=== PATIENT | female | born 1945 | race Caucasian/White ===

== ENCOUNTER 2018-07-06 12:07 | Inpatient (IN) | payer MEDICARE ==
[~2018-07-06 12:07] MED LIST: Iopamidol 370 76% 100 ML VIAL ONE
[2018-07-06 12:28] LABS: #Basophils 0.1 thou/uL (0.0-0.2); #Eosinphils 0.2 thou/uL (0.0-0.7); #Lymphocytes 2.6 thou/uL (1.20-3.40); #Monocytes 0.6 thou/uL (0.11-0.59); %Eosinophils 2.3 % (0.0-10.0); %Lymphocytes 30.9 % (21.0-51.0); %Monocytes 6.4 % (0.0-10.0); %Neutrophils 59.4 % (42.0-75.0); Hemoglobin 14.4 g/dL (12.0-16.0); Mean Corpuscular HGB CONC 34.1 g/dL (32.0-36.0); Mean Corpuscular Volume 85.2 fL (78.0-98.0); Mean Platelet Volume 8.3 fL (7.4-10.4); Platelet Count 237 thou/uL (130-400); RBC Distribution Width 11.6 % (11.5-14.5); Red Blood Cell (RBC) Count 4.96 mill/uL (4.20-5.40); White Blood Cell (WBC) Count 8.5 thou/uL (4.8-10.8)
[2018-07-06 12:32] LABS: Prothrombin Time 13.2 SEC (12.0-14.7)
[2018-07-06 12:33] LABS: PTT 29.4 SEC (22.9-36.1)
[2018-07-06 12:39] LABS: ALT (SGPT) 11 U/L (8-55); AST (SGOT) 13 U/L (5-34); Albumin 4.3 g/dL (3.4-4.8); Alkaline Phosphatase 63 U/L (40-150); Anion Gap 14 mmol/L (10-20); BUN (Urea Nitrogen) 20 mg/dL (9.8-20.1); Bilirubin, Total 0.6 mg/dL (0.2-1.2); CK (CPK) 29 U/L (29-168); Calc. Creatinine Clearance 0 mL/min (70-130); Carbon Dioxide 29 mmol/L (23-31); Chloride 104 mmol/L (98-107); Estimated GFR-MDRD 61; Globulin 3.4 g/dL (2.4-3.5); Glucose 192 mg/dL (83-110); Potassium 4.2 mmol/L (3.5-5.1); Protein, Total 7.7 g/dL (6.0-8.3); Sodium 143 mmol/L (136-145)
[2018-07-06 12:40] LABS: CKMB 0.5 ng/mL (0-6.6); Troponin I Less than 0.010 ng/mL (< 0.028)
--- NOTE | 2018-07-06 14:18 | CT ---
CT BRAIN WITHOUT CONTRAST CT ANGIOGRAM OF THE HEAD WITH CONTRAST: History: Stroke alert. Comparison: None. FINDINGS: CT of the brain was performed without intravenous contrast. Subsequently, CT angiogram of the head wa s performed after the intravenous administration of contrast. 3D rendering is provided. On the noncontrast portion of the examination there is hemorrhage. There is extensive microvascular i schemic changes. There is a hypodensity at the left anterior thalamus. This hypodensity appears relat ively subacute. No midline shift. No mass effect. There is high grade narrowing of the right P2 segment of the posterior cerebral artery with distal re constitution. Left vertebral artery is dominant. The basilar artery is patent. Both P1 segments are normal. Anterior cerebral arteries are patent. Middle cerebral arteries are jones nt. IMPRESSION: 1. Likely subacute infarction of the left anterior thalamus. 2. Moderate bronchovascular ischemic changes. 3. High grade narrowing of the right P2 segment posterior cerebral artery 1.5 cm with adequate dista l collateralization. Code CR. Dr. East at 12:37 pm. POS: [facility]
[2018-07-06 15:15] VITALS: BMI 24.0
--- NOTE | 2018-07-06 15:47 | HP ---
DATE OF ADMISSION: 07/06/2018 CHIEF COMPLAINT: The patient was at the baseline, doing her normal activities when she suddenly developed aphasia and also overall generalized weakness. HISTORY OF PRESENTING ILLNESS: This is a 72-year-old [place] patient with a past medical history that is significant for hypertension, diabetes and repeated cardiovascular accident. She had just received TPA a few months back subsequently patient has no neurological deficits. In the morning patient got up around 9:00,, ate her breakfast, took her medications, used the restroom, but patient was not speaking and was weak. Subsequently, the patient's caregiver noted that the patient was not moving her extremities. The patient was then brought to the ER and a CTA of the head in the ER showed subacute infarction of the subthalamic area. Subsequently slowly, the weakness in the ER completely resolved. The patient was able to move her both upper and lower extremities, but remained aphasic. The decision was made not to use any TPA as patient was improving. The patient was then transferred to the [facility] for further evaluation and treatment. PAST MEDICAL HISTORY: 1. Diabetes. 2. Hypertension. 3. Gout. 4. Hyperlipidemia. 5. Dementia. 6. History of multiple cerebrovascular accidents in the past with TPA been given during the previous time. PAST SURGICAL HISTORY: No significant surgical history. PSYCHIATRIC HISTORY: No previous psychiatric history. SOCIAL HISTORY: The patient denies any alcohol, drug or smoking history. ALLERGIES: The patient has no known drug allergies. REVIEW OF SYSTEMS: Unobtainable as the patient is aphasic right now, but other than aphasia and the weakness with which she presented, rest of the review of systems is within normal limits. PHYSICAL EXAMINATION: VITAL SIGNS: BP 158/92, pulse 79, respiratory rate 16, O2 sat 98. HEENT: Normocephalic, atraumatic head. Eyelids and conjunctivae are within normal limits. Pupils are round and reactive to light. External ears and canals are within normal limits. No discharge. No signs of sinusitis. RESPIRATORY AND CHEST: The chest wall is moving symmetrically. No accessory muscles are used. Air entry into both the lung daniel are equal. No wheezes, no rhonchi. CARDIOVASCULAR: Regular rate and rhythm. No murmurs, no gallops. ABDOMEN: Soft, NT, ND. +4 bowel sounds. NEUROLOGIC: The patient is aphasic, cranial nerves are intact, no focal deficits other than aphasia, no motor weakness, no loss of sensation. MUSCULOSKELETAL: No swelling of the joints. No discoloration. No pedal edema. ASSESSMENT AND PLAN: 1. Cardiovascular accident: CTA of the head showing subacute left thalamic stroke, aphasia, no other residual weakness is noted. History of recent TPA. Continue aspirin and statin with home medication and obtain an MRI to further evaluate the infarction, stroke labs, vitamin B12, TSH and folic acid will be obtained. PT/OT/Speech 2. Hypertension: Continue the home medications. 3. Diabetes: Continue home medication, metformin. 4. If MRI does not show anything new, the patient will be discharged home soon. Dr. Nataliya Hamilton [phone] [facility] CENTERBrittnee
[2018-07-06] MEDS ORDERED: metFORMIN 500 MG TAB PO SCH (17:00)
[2018-07-06] MEDS ORDERED: Dextrose 5% in Water 1,000 ML IV PRN (17:47)
[2018-07-06] MEDS ORDERED: Dextrose 50% Abboject 50 ML SYRINGE IVP PRN (17:47)
[2018-07-06] MEDS ORDERED: Atorvastatin Calcium 40 MG TAB PO SCH (21:00)
[2018-07-07 04:29] LABS: Anion Gap 15 mmol/L (10-20); BUN (Urea Nitrogen) 18 mg/dL (9.8-20.1); Calc. Creatinine Clearance 57 mL/min (70-130); Calcium 9.6 mg/dL (7.8-10.44); Carbon Dioxide 25 mmol/L (23-31); Cardiac Risk 4.2 (Less than 4.5); Chloride 106 mmol/L (98-107); Cholesterol 146 mg/dl (< 200 Desired); Estimated GFR-MDRD 69; Glucose 98 mg/dL (83-110); HDL Cholesterol 35 mg/dL (>60 Neg Risk); LDL Cholesterol, Calculated 84 mg/dL; Potassium 3.6 mmol/L (3.5-5.1); Sodium 142 mmol/L (136-145); Triglycerides 135 mg/dL (Less than 150)
[2018-07-07 04:58] LABS: Folate (Folic Acid) 12.6 ng/mL (7.0-31.4)
[2018-07-07] MEDS: Enoxaparin Sodium 40 MG/0.4 ML SYRINGE SC SCH (10:01)
[2018-07-07] MEDS: HumaLOG 300 UNITS/3 ML VIAL SC PRN (11:14)
--- NOTE | 2018-07-07 13:52 | PDOC.PN ---
- Subjective Encounter Start Date: 07/07/18 Encounter Start Time: 09:30 Subjective: pt up in bed was dizzy this am - Objective Resuscitation Status: Resuscitation Status FULL:Full Resuscitation Vital Signs & Weight: Vital Signs (12 hours) Temp Pulse Pulse Pulse Resp BP BP 07/07/18 11:08 98.7 F 74 16 07/07/18 09:09 68 76 126/78 103/73 07/07/18 09:00 68 76 126/78 103/73 07/07/18 07:40 98.5 F 69 20 07/07/18 04:00 97.5 F L 71 16 BP Pulse Ox 07/07/18 11:08 172/89 H 92 L 07/07/18 09:09 07/07/18 09:00 07/07/18 07:40 150/80 H 92 L 07/07/18 04:00 166/75 H 96 Weight Weight 127 lb 8 oz I&O: 07/06/18 07/07/18 07/08/18 06:59 06:59 06:59 Intake Total 150 600 Balance 150 600 Result Diagrams: 07/06/18 12:15 07/07/18 03:31 Additional Labs: Accuchecks 07/07/18 07/06/18 05:20 20:19 POC Glucose 111 H 119 H Phys Exam - Physical Examination Neck: no nodes, no JVD, supple, full ROM Respiratory: no wheezing, no rales, no rhonchi, wheezing present, clear to auscultation bilateral Cardiovascular: RRR, no significant murmur, no rub, gallop, irregular Gastrointestinal: soft, non-tender, no distention, positive bowel sounds Musculoskeletal: no edema, pulses present, edema present pt is slow to respond, mild weakness to right upper and lower ext Dx/Plan (1) Acute ischemic stroke Code(s): I63.9 - CEREBRAL INFARCTION, UNSPECIFIED Status: Acute (2) HTN (hypertension) Code(s): I10 - ESSENTIAL (PRIMARY) HYPERTENSION Status: Acute (3) Diabetes Code(s): E11.9 - TYPE 2 DIABETES MELLITUS WITHOUT COMPLICATIONS Status: Acute - Plan pt has has multiple strokes is on asa/plavix -: will get records from [facility], nurse notified -: cta indicates high grade stenosis cloth sander will consult -: neurosurgery for possible any intervention, also consult neurology -: mri ordered. pt had recent echo. * . Review of Systems - Review of Systems Respiratory: negative: Cough, Dry, Shortness of Breath, Hemoptysis, SOB with Excertion, Pleuritic Pain, Sputum, Wheezing Cardiovascular: negative: chest pain, palpitations, orthopnea, paroxysmal nocturnal dyspnea, edema, light headedness, other Gastrointestinal: negative: Nausea, Vomiting, Abdominal Pain, Diarrhea, Constipation, Melena, Hematochezia, Other - Medications/Allergies Allergies/Adverse Reactions: Allergies Allergy/AdvReac Type Severity Reaction Status Date / Time No Known Allergies Allergy Verified 07/06/18 16:10 Medications: Current Medications Aspirin (Aspirin Chewable) 81 mg PO DAILY [facility] Last Admin: 07/07/18 10:01 Dose: 81 mg Clopidogrel Bisulfate (Plavix) 75 mg PO DAILY [facility] Cyanocobalamin (Vitamin B-12) 1,000 mcg IM DAILY [facility] Stop: 07/09/18 10:00 Cyanocobalamin (Vitamin B-12) 1,000 mcg PO DAILY [facility] Dextrose/Water (Dextrose 50%) 25 gm IVP PRN PRN PRN Reason: HYPOGLYCEMIA PROTOCOL Enoxaparin Sodium (Lovenox) 40 mg SC 0900 [facility] Last Admin: 07/07/18 10:01 Dose: 40 mg Glucagon (Glucagon) 1 mg IM PRN PRN PRN Reason: HYPOGLYCEMIA PROTOCOL Dextrose/Water (D5w) 1,000 mls @ 0 mls/hr IV INF PRN PRN Reason: HYPOGLYCEMIA PROTOCOL Insulin Human Lispro (Humalog) 0 units SC .MILD SLIDING SCALE PRN; Protocol PRN Reason: MILD SLIDING SCALE Last Admin: 07/07/18 11:14 Dose: 2 unit Losartan Potassium (Cozaar) 100 mg PO DAILY [facility] Metformin HCl (Glucophage) 500 mg PO BID-[facility] Simvastatin (Zocor) 20 mg PO HS [facility]
--- NOTE | 2018-07-07 14:12 | MRI ---
MRI BRAIN WITH AND WITHOUT CONTRAST IV CONTRAST: HISTORY: Stroke, dizziness. Right-sided weakness. FINDINGS: Correlation is made with the CT and CTA of previous day. Multiple foci of T2 prolongation in the periventricular white matter consistent with chronic small-ve ssel ischemic disease. No restricted diffusion is seen. There are a few foci of signal hypointensit y on the gradient echo sequences consistent with old hemorrhage/hemosiderin deposits. No evidence of acute infarct, acute hemorrhage, mass, midline shift, or abnormal extraaxial fluid collections is se en. The ventricular size is appropriate and the basilar cisterns patent. No abnormal post contrast enhancement is seen. There is mucosal disease in the paranasal sinuses. There is fluid in the left m astoid air cells. IMPRESSION: Chronic changes. No acute process or intracranial mass. POS: [facility]
[2018-07-07] MEDS ORDERED: Losartan 25 MG TAB PO SCH (15:00)
[2018-07-07] MEDS: metFORMIN 500 MG TAB PO SCH (16:54)
--- NOTE | 2018-07-07 18:56 | CON ---
DATE OF CONSULTATION: 07/07/2018 CONSULTING PHYSICIAN: Hospitalist Service. IMPRESSION: 1. Transient dizziness possibly secondary to a peripheral vertigo. 2. Dementia. 3. Hypertension. 4. Diabetes. 5. History of transient ischemic attack. PLAN: The patient can be discharged home for outpatient followup at the [facility]. HISTORY OF PRESENT ILLNESS: Ms. Hinton is a 72-year-old [place] woman whose primary language is Valeriano martinez. She was at home under her 's care. He noted that she seemed to get a generally weak an d complained of being dizzy. He tried to get her up from the couch and had difficulty doing so. Whe n he picked up her arms, she reports that both of them seemed to be weak. She was transported to the emergency room for evaluation. She and her reports that her symptoms seemed to resolve in a bout 2-3 hours. She had a CT angiogram which suggested the possibility of a subacute infarction invo lving the left anterior thalamus. Followup MRI of the brain does not reveal any evidence of an acute ischemic event. She has some minimal small vessel ischemic changes. LABORATORY STUDIES: Showed unremarkable CBC, coags, and chemistry panel. Her blood sugars were over 100. Her B12 level was low at 147. Folate was in normal range. PAST MEDICAL HISTORY: As listed above. ALLERGIES: None. SOCIAL HISTORY: No tobacco or alcohol use. FAMILY HISTORY: Noncontributory. REVIEW OF SYSTEMS: She has no particular complaints at this point. PHYSICAL EXAMINATION: VITAL SIGNS: Blood pressure 172/89, pulse 74, respirations 16, temperature 98.7. Orthostatic measur ements showed a 20 mm drop in pressure down from 126-103. HEENT: Pupils equal and reactive. Conjunctivae clear. Oropharynx clear. NECK: Supple, no lymphadenopathy. EXTREMITIES: No cyanosis. NEUROLOGIC: She was alert and relatively cooperative. Her had to speak to her in primary la nguage to get her to answer questions. There is no dysarthria noted. No facial asymmetry was presen t. Motor exam showed equal strength. No abnormal movements were seen. She has been up to the bathr oom earlier today. SUMMARY: This is a 72-year-old woman with a past history of dementia who presented with some general ized weakness and diminished speech output. She appears to be a bit orthostatic, although the pressu res are still in normal range. Her workup thus far has been unremarkable other than the B12 level wh ich needs to be addressed with supplementation. I do not see any further neurologic workup that need s to be done at this point. I will be happy to follow up with her as an outpatient.
[2018-07-07] MEDS ORDERED: Simvastatin 20 MG TAB PO SCH (21:00)
[2018-07-07] MEDS ORDERED: Atorvastatin Calcium 10 MG TAB PO SCH (21:00)
[2018-07-08] MEDS ORDERED: Clopidogrel Bisulfate 75 MG TAB PO SCH (09:00)
[2018-07-08] MEDS ORDERED: Losartan 25 MG TAB PO SCH (09:00)
[2018-07-08] MEDS ORDERED: Cyanocobalamin 1000 MCG/ML VIAL IM SCH (09:00)
[2018-07-08] MEDS ORDERED: Cyanocobalamin (Vitamin B-12) 1,000 MCG TAB PO SCH (09:00)
[2018-07-08] MEDS: metFORMIN 500 MG TAB PO SCH (09:12)
[2018-07-08] MEDS: Enoxaparin Sodium 40 MG/0.4 ML SYRINGE SC SCH (09:13)
[2018-07-08] MEDS: HumaLOG 300 UNITS/3 ML VIAL SC PRN (13:28)
--- NOTE | 2018-07-08 14:34 | PDOC.PN ---
- Subjective Encounter Start Date: 07/08/18 Encounter Start Time: 10:00 Subjective: pt up walking - Objective Resuscitation Status: Resuscitation Status FULL:Full Resuscitation Vital Signs & Weight: Vital Signs (12 hours) Temp Pulse Resp BP Pulse Ox 07/08/18 08:00 96 07/08/18 07:57 97.9 F 66 16 148/77 H 96 07/08/18 03:30 97.5 F L 64 16 153/79 H 95 Weight Weight 127 lb 8 oz I&O: 07/07/18 07/08/18 07/09/18 06:59 06:59 06:59 Intake Total 150 950 50 Balance 150 950 50 Result Diagrams: 07/06/18 12:15 07/07/18 03:31 Additional Labs: Accuchecks 07/08/18 07/08/18 07/07/18 12:25 05:58 20:37 POC Glucose 176 H 147 H 169 H 07/07/18 07/07/18 16:50 10:45 POC Glucose 116 H 169 H Phys Exam - Physical Examination Neck: no nodes, no JVD, supple, full ROM Respiratory: no wheezing, no rales, no rhonchi, wheezing present, clear to auscultation bilateral Cardiovascular: RRR, no significant murmur, no rub, gallop, irregular Gastrointestinal: soft, non-tender, no distention, positive bowel sounds Musculoskeletal: no edema, pulses present, edema present Dx/Plan (1) Acute ischemic stroke Code(s): I63.9 - CEREBRAL INFARCTION, UNSPECIFIED Status: Acute (2) HTN (hypertension) Code(s): I10 - ESSENTIAL (PRIMARY) HYPERTENSION Status: Acute (3) Diabetes Code(s): E11.9 - TYPE 2 DIABETES MELLITUS WITHOUT COMPLICATIONS Status: Acute - Plan * .
[2018-07-08 15:07] VITALS: BP 145/79; TEMP 98.4
--- NOTE | 2018-07-08 16:50 | PRG ---
DATE OF SERVICE: 07/08/2018 This is a 30-minute initial hospital visit note, of which 30 minutes were spent in review of imaging and record, evaluation and examination of the patient, formulation of a plan. Greater than 50% of [facility] time was spent in counseling on Zara Hinton. Ms. Hinton was admitted for concern of stroke. MRI demonstrates left thalamic stroke. This is not po sitive on diffusion restriction and likely is older in a subacute to chronic fashion. Nevertheless, CTA demonstrates some diminutive nature of the left P2 artery. This may be longstanding frankly. [place] doe is already on a baby aspirin and Plavix. I would recommend increase to a full-strength aspirin and Plavix, and I have discussed this with her and her family. Evidently, Neurology is also seeing the patient, so I would defer to them. She certainly does not need any further neurosurgical interventio n or followup. DIAGNOSIS: Left thalamic stroke with [employer] hypoplasia versus stenosis.
[2018-07-10] MEDS ORDERED: Cyanocobalamin (Vitamin B-12) 1,000 MCG TAB PO SCH (09:00)
== END 2018-07-08 16:20 | disposition home or self-care (01) | DRG 66 ==
LOC: SCSER 12:07 → 2SE 13:07
PROVIDERS: ADMIT Family Medicine; ATTEND Family Medicine
DX: I63.89 Other cerebral infarction (principal); R53.1 Weakness; I10 Essential (primary) hypertension; E11.9 Type 2 diabetes mellitus without complications; M10.9 Gout, unspecified; E78.5 Hyperlipidemia, unspecified; F03.90 Unspecified dementia, unspecified severity, without behavioral disturbance, psychotic disturbance, mood disturbance, and anxiety; Z86.73 Personal history of transient ischemic attack (TIA), and cerebral infarction without residual deficits
CPT/HCPCS: 36415; 36416; 70496; 70553; 80048; 80053; 80061; 82550; 82553; 82607; 82746; 84484; 85025; 85610; 85730; 86850; 86900; 86901; 93005; G8978-GP-CJ; G8979-GP-CJ; G8980-GP-CJ; G8987-GO-CJ; G8988-GO-CI; G9162-GN-CM; G9163-GN-CL; J1650; J3420